=== PATIENT | female | born 1990 | race Caucasian/White ===

== ENCOUNTER 2023-03-11 21:08 | Emergency (ER) | payer SELFPAY | END 2023-03-11 22:05 | disposition home or self-care (01) | LOC: CSHERS 21:08 | DX: M25.531 Pain in right wrist (principal); K03.81 Cracked tooth; K02.9 Dental caries, unspecified; F17.210 Nicotine dependence, cigarettes, uncomplicated; X50.0XXA Overexertion from strenuous movement or load, initial encounter | CPT/HCPCS: 99283 ==